=== PATIENT | male | born 1990 | race Hispanic/Latino ===

== ENCOUNTER 2020-06-10 19:44 | Observation (INO) | payer OTHER, SELFPAY ==
--- NOTE | ~2020-06-10 | CT_ITS ---
EXAMINATION: CT abdomen pelvis w con DATE: 06/10/2020 20:57 INDICATION: Right lower quadrant abdominal pain. TECHNIQUE: Computed tomography (CT) of the abdomen and pelvis was performed with 100 mL Omnipaque 350 intravenous contrast. Automated exposure control and iterative reconstruction technique were employe d. The dose-length product was 913.50 mGy-cm. COMPARISON: None. FINDINGS: The visualized portions of the lung bases demonstrate minimal atelectasis. No pleural effus ion. The heart size is normal. No pericardial effusion. The liver, gallbladder, spleen, pancreas, adr enal glands, and kidneys are normal. There are no dilated loops of bowel. The appendix is fluid-fille d with diameter of 8 mm. There are no pathologically enlarged lymph nodes. There is no free intraperi toneal fluid. There is mild lumbar spondylosis. IMPRESSION: 1. Appendiceal diameter of 8 mm, which is indeterminate for appendicitis. Reviewed, dictated and finalized at location A.
[2020-06-10 19:48] VITALS: BP 145/90; PULSE 89; RESP 18; TEMP 36.9; O2SAT 100
[2020-06-10 20:23] LABS: Add Urine Microscopic? NO; Appearance Urine Clear (Clear); Bilirubin Urine Negative (Negative); Blood Urine Negative (Negative); Color Urine Straw (Yellow); Glucose Urine UA Negative (Negative); Ketones Urine Negative (Negative); Leukocyte Esterase Ur Negative LEU/UL (Negative); Nitrate Urine Negative (Negative); Protein Urine Negative (Negative); Specific Grav Ur 1.009 (1.001-1.035); Urobilinogen Urine Negative mg/dL (<2.0)
[2020-06-10 20:31] LABS: Basophils Absolute Auto 0.1 K/mm3 (0.0-0.1); Basophils Percent Auto 0.6 % (0.2-1.2); Eosinophils Absolute Auto 0.4 K/mm3 (0-0.3); Eosinophils Percent Auto 4.2 % (0-4.4); Hematocrit 42.7 % (42.0-52.0); Hemoglobin 14.1 g/dL (14.0-18.0); Immature Granulocyte Absolute 0.04 K/mm3 (0.00-0.031); Immature Granulocyte Percent A 0.5 % (0-0.5); Lymphocytes Absolute Auto 3.69 K/mm3 (0.9-3.2); Lymphocytes Percent Auto 42.1 % (18.3-44.2); Mean Corpuscular Volume 87.9 fl (80-100); Mean Platelet Volume 10.4 fl (7.4-10.4); Monocytes Absolute Auto 0.6 K/mm3 (0.1-0.6); Monocytes Percent Auto 7.1 % (2.6-8.5); Neutrophils Percent Auto 45.5 % (45.5-73.1); Platelet Count Result 313 k/mm3 (150-375); Red Blood Count 4.86 M/mm3 (4.6-6.20); Red Cell Distribution Width 14.9 % (11.5-14.5); White Blood Count 8.8 K/mm3 (4.5-10.0)
[2020-06-10 20:40] LABS: Alanine Aminotransferase 20 U/L (4-50); Albumin Level 4.3 g/dL (3.5-5.1); Alkaline Phosphatase 62 U/L (38-126); Anion Gap 6 mmol/L (8-16); Aspartate Amino Transferase 23 U/L (17-59); Bilirubin,Total 0.9 mg/dL (0.2-1.3); Blood Urea Nitrogen 10 mg/dL (9-20); Calcium 9.3 mg/dL (8.4-10.2); Carbon Dioxide 30 mmol/L (22-30); Chloride 105 mmol/L (98-107); Estimated CRCL calculation 118 ml/min; Estimated Glomerular Filt Rate > 60; Glucose 92 mg/dL (75-110); Lipase 97 U/L (23-300); Sodium 141 mmol/L (137-145)
[2020-06-10 21:35] VITALS: BP 140/98; PULSE 87; RESP 20; O2SAT 100
[2020-06-10] MEDS: SODIUM CHLORIDE 0.9% IV 1,000 ML 150 ML IV CONT (21:49)
--- NOTE | 2020-06-10 23:02 | ED.ABDPAIN ---
HPI - Abdominal Pain General Chief Complaint: Abdominal Pain Stated Complaint: RLQ pain Time Seen by Provider: 06/10/20 19:54 Source: patient Mode of arrival: ambulatory Limitations: no limitations History of Present Illness HPI narrative: 29-year-old with no major medical problems here with a right lower quadrant pain since yesterday. Patient states that pain is still persistent was at work and got worse. He denies any fever or chills no history of blood in the urine or in stool. No other complaints MD elicited complaint: abdominal pain Pertinent past history: none Onset (ago): day(s) (1) Pain Consistency: constant Location: RLQ Severity: moderate Quality: aching Radiation: RLQ Migration to: no migration Exacerbating factors: nothing Relieving factors: nothing Related Data Home Medications Medication Instructions Recorded Confirmed No Home Medications 06/10/20 Allergies Allergy/AdvReac Type Severity Reaction Status Date / Time No Known Allergies Allergy Verified 06/10/20 19:51 Review of Systems Review of Systems: All systems reviewed & are unremarkable except as noted in HPI and below Constitutional: Constitutional: Reports no additional constitutional complaints Eyes: Eyes: Reports no additional eye complaints ENT: Reports system reviewed and no additional complaints, except as documented Cardiovascular: Cardiovascular: Reports no additional cardiovascular complaints Respiratory: Respiratory: Reports no additional respiratory complaints Gastrointestinal: Gastrointestinal: Reports as per HPI Genitourinary: Genitourinary: Reports no additional male genitourinary complaints Musculoskeletal: Musculoskeletal: Reports no additional musculoskeletal complaints Integumentary/Breasts: Skin/Breast: Reports system reviewed and no additional complaints, except as docu Neurologic: Reports system reviewed and no additional complaints, except as documented PMFSH Social History Social History Gender identity (if verbalized by the patient): Male Exam Narrative: Exam Narrative: GENERAL: Well-appearing, well-nourished, and in no acute distress. HEAD: Normocephalic, atraumatic. EYES: PERRLA and EOMI.. NECK: Supple. CHEST: Clear to auscultation. No respiratory distress. HEART: Regular rate and rhythm. No murmur heard. Normal peripheral pulses. ABDOMEN: Soft, mild tenderness in the right lower quadrant area ,, nondistended, normal active bowel sounds. EXTREMITIES: Normal range of motion. No edema. SKIN: Warm, dry, no rash. NEURO: No focal deficits. Alert and oriented x3. PSYCH: Normal mood and affect. Course Course Emergency Course: Patient lying comfortably in no discomfort. I informed him about his lab work, CT findings. He agreed for admission. I discussed with Dr. Mackenzie recommended IV antibiotic and will do surgery in the morning. Vital Signs Vital signs: Vital Signs Temperature 36.9 C 06/10/20 19:48 Pulse Rate 89 06/10/20 19:48 Respiratory Rate 18 06/10/20 19:48 Blood Pressure 145/90 H 06/10/20 19:48 Pulse Oximetry 100 06/10/20 19:48 Temperature 36.9 C 06/10/20 19:48 Pulse Rate 87 06/10/20 21:35 Respiratory Rate 20 06/10/20 21:35 Blood Pressure 140/98 H 06/10/20 21:35 Pulse Oximetry 100 06/10/20 21:35 MDM - Abdominal Pain Differential Diagnosis Differential diagnosis: Likely abdominal pain, acute appendicitis, diverticulitis and gastroenteritis Lab Data Result diagrams: 06/10/20 20:02 06/10/20 20:02 Labs: Lab Results 06/10/20 06/10/20 06/10/20 Range/Units 20:02 20:02 20:15 WBC 8.8 (4.5-10.0) K/mm3 RBC 4.86 (4.6-6.20) M/mm3 Hgb 14.1 (14.0-18.0) g/dL Hct 42.7 (42.0-52.0) % MCV 87.9 (80-100) fl MCH 29.0 (26-34) pg MCHC 33.0 (32-36) g/dl RDW 14.9 H (11.5-14.5) % Plt Count 313 (150-375) k/mm3 MPV 10.4 (7.4-10.4) f
[2020-06-10 23:18] VITALS: BP 137/68; PULSE 78; RESP 18; TEMP 36.4; O2SAT 99
[2020-06-10 23:20] VITALS: BMI 33.6
[2020-06-10 23:33] VITALS: O2SAT 97
[2020-06-11] VITALS (10 sets, daily range): BP systolic 96–133; BP diastolic 68–87; PULSE 56–93; RESP 15–20; TEMP 35.9–36.8; O2SAT 95–100
--- NOTE | 2020-06-11 09:39 | PM.IMHP ---
H&P: HPI History of Present Illness Date/Time: 06/11/20 09:39 Pt is a 29 y/o M presenting to ED c/o persistent, worsening RLQ abd pain over last 2 days. Pt reports pain was acute in nature and has always been localized to RLQ. Pt denies any other assoc sx and has been able to kristina diet. Pt also reports normal bowel fxn. Pt denies f/c, previous episodes. Chief Complaint: acute appendicitis Review of Systems Constitutional: Constitutional: Denies anorexia, Denies chills, Denies fatigue, Denies lethargy, Denies poor appetite, Denies weakness, Denies weight gain and Denies weight loss Eyes: Eyes: Reports no additional eye complaints ENT: Reports system reviewed and no additional complaints, except as documented Cardiovascular: Cardiovascular: Reports no additional cardiovascular complaints Respiratory: Respiratory: Reports no additional respiratory complaints Gastrointestinal: Gastrointestinal: Reports as per HPI Genitourinary: Genitourinary: Reports no additional male genitourinary complaints Musculoskeletal: Musculoskeletal: Reports no additional musculoskeletal complaints Integumentary/Breasts: Skin/Breast: Reports system reviewed and no additional complaints, except as docu Neurologic: Reports system reviewed and no additional complaints, except as documented Psychiatric: Psychiatric: Reports no additional psychiatric complaints Endocrine: Endocrine: Reports no additional endocrine complaints Hematologic/Lymphatic: Hematologic/Lymphatic: Reports no additional hematologic/lymphatic complaints Allergic/Immunologic: Allergic/Immunologic: Reports no additional allergic/immunologic complaints [facility] Family History Family History Grandparent Cerebrovascular accident Diabetes mellitus Social History Social History Smoking status: Current every day smoker Tobacco type: e-cigarettes/vaping Alcohol intake: current Drinks per week: 1 Substance use: never Gender identity (if verbalized by the patient): Male Spiritual care concerns: No Comments pt denies any past medical or surgical history Meds Home Medications and Allergies Home Medications Medication Instructions Recorded Confirmed Type No Home Medications 06/10/20 06/10/20 History Allergies Allergy/AdvReac Type Severity Reaction Status Date / Time No Known Allergies Allergy Verified 06/10/20 23:21 Vital Signs Vital Signs - 24 hr 06/10/20 19:48 06/10/20 21:35 05/06/21 23:18 Temperature 36.9 C 36.4 C Pulse Rate 89 87 78 Respiratory Rate 18 20 18 Blood Pressure 145/90 H 140/98 H 137/68 Pulse Oximetry 100 100 99 06/10/20 23:33 06/11/20 08:51 Temperature 36.2 C L Pulse Rate 56 L Respiratory Rate 18 Blood Pressure 118/68 Pulse Oximetry 97 99 Exam Const: General: cooperative, healthy appearing, comfortable, no acute distress, well developed, alert, awake and Physically active Nutritional Appearance: obese Orientation/consciousness: patient oriented x3 Limitations: no limitations HENMT: Head: normal to inspection, normocephalic and atraumatic Ears: hearing grossly normal bilaterally General nose exam: Normal external nose present Face and sinus: normal facial exam Mouth: Yes Normal oral and palatal mucosa present and Yes moist mucous membranes Eyes: General: appearance normal, both eyes and all related structures Pupils: Equal, round and reactive pupils present EOM: EOMs intact bilaterally Neck: Neck: normal visual inspection, full ROM and no lymphadenopathy Chest: Chest palpation & inspection: normal inspection of the chest Resp: Effort & Inspection: normal respiratory effort Auscultation: clear to auscultation bilaterally Cardio: Jugular venous distension: no JVD Rate: regular rate Rhythm: regular rhythm GI: Inspection: normal to inspection GI Palp: Yes Soft to palpation, Yes Tenderness to p
--- NOTE | 2020-06-11 09:43 | WPDHPUPDATE1 ---
History and Physical Update Update Date/Time: 06/11/20 09:43 History and Physical has been reviewed, including an updated exam of the patient. There are NO changes in the patient's condition. Risks, benefits, and alternatives have been discussed and questions answered. Patient agrees to proceed with procedure.
--- NOTE | 2020-06-11 13:39 | WPDANESEPPF ---
Anes - Initial Pre Proc Eval Procedure: Operation Date: 06/11/20 14:30 Proposed Procedures p Laparoscopic Appendectomy - Janice Mackenzie MD Date/Time: 06/11/20 13:39 Surgeon: Janice Mackenzie MD Pre Op Diagnosis: appendicitis Patient Data Age: 29 Gender: M Height: 1.7 m Weight: 97.5 kg Last Vital Signs Temp 36.2 C L 06/11/20 08:51 Pulse 56 L 06/11/20 08:51 Resp 18 06/11/20 08:51 BP 118/68 06/11/20 08:51 Pulse Ox 99 06/11/20 08:51 Allergies Allergy/AdvReac Type Severity Reaction Status Date / Time No Known Allergies Allergy Verified 06/10/20 23:21 Home Medications Medication Instructions Recorded Confirmed Type No Home Medications 06/10/20 06/10/20 History Laboratory Tests 06/10/20 06/10/20 06/10/20 20:02 20:02 20:15 WBC 8.8 K/mm3 K/mm3 (4.5-10.0) RBC 4.86 M/mm3 M/mm3 (4.6-6.20) Hgb 14.1 g/dL g/dL (14.0-18.0) Hct 42.7 % % (42.0-52.0) MCV 87.9 fl fl (80-100) MCH 29.0 pg pg (26-34) MCHC 33.0 g/dl g/dl (32-36) RDW 14.9 % H % (11.5-14.5) Plt Count 313 k/mm3 k/mm3 (150-375) MPV 10.4 fl fl (7.4-10.4) Immature Gran % (Auto) 0.5 % % (0-0.5) Neut % (Auto) 45.5 % % (45.5-73.1) Lymph % (Auto) 42.1 % % (18.3-44.2) [place] % (Auto) 7.1 % % (2.6-8.5) Eos % (Auto) 4.2 % % (0-4.4) Baso % (Auto) 0.6 % % (0.2-1.2) Lymph # (Auto) 3.69 K/mm3 H K/mm3 (0.9-3.2) [place] # (Auto) 0.6 K/mm3 K/mm3 (0.1-0.6) Eos # (Auto) 0.4 K/mm3 H K/mm3 (0-0.3) Baso # (Auto) 0.1 K/mm3 K/mm3 (0.0-0.1) Abs Immat Gran (auto) 0.04 K/mm3 H K/mm3 (0.00-0.031) Absolute Neuts (auto) 4.0 K/mm3 K/mm3 (1.3-6.7) Absolute Nucleated RBC 0.0 K/mm3 K/mm3 (0.0-0.012) Nucleated RBC % 0.0 % % (0.0-0.2) Sodium 141 mmol/L mmol/L (137-145) Potassium 4.0 mmol/L mmol/L (3.4-5.0) Chloride 105 mmol/L mmol/L (98-107) Carbon Dioxide 30 mmol/L mmol/L (22-30) Anion Gap 6 mmol/L L mmol/L (8-16) BUN 10 mg/dL mg/dL (9-20) Creatinine 0.90 mg/dL mg/dL (0.7-1.3) Estim Creat Clear Calc 118 ml/min ml/min Estimated GFR > 60 (59 - ) Glucose 92 mg/dL mg/dL (75-110) Calcium 9.3 mg/dL mg/dL (8.4-10.2) Total Bilirubin 0.9 mg/dL mg/dL (0.2-1.3) AST 23 U/L U/L (17-59) ALT 20 U/L U/L (4-50) Alkaline Phosphatase 62 U/L U/L (38-126) Total Protein 8.0 g/dL g/dL (6.3-8.2) Albumin 4.3 g/dL g/dL (3.5-5.1) Lipase 97 U/L U/L (23-300) Urine Color Straw (Yellow) Urine Appearance Clear (Clear) Urine pH 7.0 (5.0-9.0) Ur Specific [place] 1.009 (1.001-1.035) Urine Protein Negative mg/dL mg/dL (Negative) Urine Glucose (UA) Negative mg/dL mg/dL (Negative) Urine Ketones Negative mg/dL mg/dL (Negative) Ur Blood (Man) Negative (Negative) Urine Nitrate Negative (Negative) Urine Bilirubin Negative (Negative) Urine Urobilinogen Negative mg/dL mg/dL (<2.0) Leukocyte Esterase Rfl Negative VAN/UL VAN/UL (Negative) Patient hx anesthesia problems: none Family hx anesthesia problems: none PMFSH Family History Family History Grandparent Cerebrovascular accident Diabetes mellitus Social History Social History Smoking status: Current every day smoker Tobacco type: e-cigarettes/vaping Alcohol intake: current Drinks per week: 1 Substance use: never Gender identity (if verbalized by the patient): Male Spiritual care concerns: No
[2020-06-11] MEDS: LACTATED RINGERS 1,000 ML 30 ML IV CONT ×2 (13:40→15:34)
[2020-06-11] MEDS: BUPIVACAINE/EPINEPHRINE 0.5% 30 ML VIAL INFILTRATE (15:04)
--- NOTE | 2020-06-11 15:27 | PM.PROC ---
Procedure Note - Detailed Date of procedure: 06/11/20 Pre-op diagnosis: appendicitis Post-op diagnosis: same Procedure performed: Laparoscopic appendectomy Description of procedure: The patient was brought into the operating room placed in the supine position. After adequate induction of general anesthesia, the patient was prepped and draped in normal sterile fashion. A time-out was then done to verify the patient's identity as well as the procedure being performed. I began by making a 5 mm incision in the infraumbilical region. A 5 mm Optiview trocar within used to gain access into the peritoneal cavity. Once into the peritoneal cavity, CO2 gas was insufflated. After adequate pneumoperitoneum was achieved, the laparoscope was placed into the 5 mm trocar. Under direct visualization, I went ahead and placed a further 5 mm suprapubic port as well as a 12 mm port in the left lower abdomen. At this point, I was able to visualize cecum. The cecum was retracted both cephalad and medial, and this allowed us to expose the appendix. The appendix was noted to be dilated, injected, and inflamed. There was no obvious perforation of the appendix. I then grasped the appendix near the tip of the appendix and retracted both anterior and lateral. This allowed exposure of the base of the appendix with the cecum. I then created a window with the [place] dissector between the appendix and the mesoappendix at the base of the appendix. Once this was achieved, a vascular staple load on the Endo-LUZ ELENA was placed through the 12 mm port site and subsequently transected the mesoappendix. I then reloaded the Endo-LUZ ELENA with a blue staple load and transected the base of the appendix with the cecum. Once the appendiceal specimen was completely detached, a Endo pouch was placed through the 12 mm port site. The appendix was placed into the Endo pouch and removed through the 12 mm port site. The appendix will now be sent to pathology for further review. I then visualized the right lower quadrant, both staple lines were noted to be intact and hemostatic. No other pathology was noted in the right lower quadrant or pelvis. I then moved the laparoscope to the 5 mm suprapubic port. I then visualized our port of entry at the 5 mm infraumbilical site. No iatrogenic injury or other pathology was seen in the upper abdomen. I then desufflated the abdomen and all ports were removed. The fascia of the 12 mm port site was closed with an 0 Vicryl figure of 8 suture. All port sites were then closed with 4 O Monocryl subcuticular suture. The patient tolerated the procedure well and was extubated in the operating room postoperatively. The patient will be transferred to the recovery room in stable condition. Anesthesia: GETA Surgeon: Janice Mackenzie MD Estimated blood loss (mL): 5 Drains: No Packing: No Pathology: yes Complications: No immediate complications Condition: stable Disposition: PACU Findings: Acute uncomplicated appendicitis
--- NOTE | 2020-06-11 15:28 | PM.DS ---
DS: Admitting Diagnosis Admitting Diagnosis Admitting Diagnosis: acute appendicitis DS: Discharge Diagnosis Discharge Diagnosis (1) Acute appendicitis: Qualifiers: Acute appendicitis type: with localized peritonitis Appendicitis abscess presence: without abscess Appendicitis gangrene presence: without gangrene Appendicitis perforation presence: without perforation Qualified Code(s): K35.30 - Acute appendicitis with localized peritonitis, without perforation or gangrene Code(s): K35.80 - Unspecified acute appendicitis Status: Acute Assessment and Plan: s/p lap appy, routine postop care, home c po analgesia and stool softeners, f/u 2 wks DS: Summary Hospital Course Reason for hospitalization: acute appendicitis Hospital Course: Pt is a 29 y/o M presenting to ED c/o RLQ abd pain. Workup in ED, including CT, significant for acute appendicitis. Pt admitted to surgical team, made NPO, and started on IV abx. Upon evaluation, it was decided pt would need urgent appendectomy. Pt taken to OR on 06/11 and lap appy done, please see op report for full details. Postop, pt did well and was transferred back to floor. Pt was observed for a few hours postop and was doing well. He will be dc'd home c routine postop instructions, po analgesia. Pt to f/u 2 wks. Status at Discharge Functional status at discharge: independent ambulation Overall status at discharge: patient is progressing back to baseline Time Spent with Patient Time attestation: Total time spent providing and/or coordinating discharge services: Time spent: Less than 30 minutes Exam Const: General: cooperative, comfortable and no acute distress Nutritional Appearance: obese Orientation/consciousness: patient oriented x3 Resp: Effort & Inspection: normal respiratory effort Auscultation: clear to auscultation bilaterally Cardio: Rate: regular rate Rhythm: regular rhythm GI: Inspection: normal to inspection, distended and incision GI Palp: Yes Soft to palpation and Yes Tenderness to palpation present (GI) Other: soft, sl dist, silvia TTP, incisions C/D/I DS: Data Data Completed and Pending Pending studies at discharge: Pending at discharge 06/11/20 15:00 Surgical [PTH] Routine Labs on day of discharge: Labs from last 24 hours 06/10/20 06/10/20 06/10/20 20:15 20:02 20:02 WBC 8.8 RBC 4.86 Hgb 14.1 Hct 42.7 MCV 87.9 MCH 29.0 MCHC 33.0 RDW 14.9 H Plt Count 313 MPV 10.4 Immature Gran % (Auto) 0.5 Neut % (Auto) 45.5 Lymph % (Auto) 42.1 [place] % (Auto) 7.1 Eos % (Auto) 4.2 Baso % (Auto) 0.6 Lymph # (Auto) 3.69 H [place] # (Auto) 0.6 Eos # (Auto) 0.4 H Baso # (Auto) 0.1 Abs Immat Gran (auto) 0.04 H Absolute Neuts (auto) 4.0 Absolute Nucleated RBC 0.0 Nucleated RBC % 0.0 Sodium 141 Potassium 4.0 Chloride 105 Carbon Dioxide 30 Anion Gap 6 L BUN 10 Creatinine 0.90 Estim Creat Clear Calc 118 Estimated GFR > 60 Glucose 92 Calcium 9.3 Total Bilirubin 0.9 AST 23 ALT 20 Alkaline Phosphatase 62 Total Protein 8.0 Albumin 4.3 Lipase 97 Urine Color Straw Urine Appearance Clear Urine pH 7.0 Ur Specific [place] 1.009 Urine Protein Negative Urine Glucose (UA) Negative Urine Ketones Negative Ur Blood (Man) Negative Urine Nitrate Negative Urine Bilirubin Negative Urine Urobilinogen Negative Leukocyte Esterase Rfl Negative Discharge Plan Discharge Attending physician on discharge: Janice Mackenzie Discharging Clinician: Janice Mackenzie Anticipated Discharge Date/Time: 06/11/20 19:00 Patient Disposition: Home, Self-Care Activity: other - see discharge instructions Diet: other - see discharge instructions Wound Care Instructions: follow printed instructions Discharge Instructions: DISCHARGE INSTRUCTION SHEET FOR HERNIA, GALLBLADDER AND APPEND
[2020-06-11] MEDS: fentaNYL CITRATE INJ (*CRX) 100 MCG/2 ML VIAL 25 MCG IV PUSH ×2 (16:00→16:12)
== END 2020-06-11 19:00 | disposition home or self-care (01) ==
LOC: ANHED 20:09 → ANH3MED 22:34
PROVIDERS: Admitting Provider Surgery; Emergency Provider Family Medicine; Visit Provider Surgery
PROC: 0DTJ4ZZ Resection of Appendix, Percutaneous Endoscopic Approach (ICD-10-PCS; CPT 44970; principal; 2020-06-11 14:30)
DX: K35.30 Acute appendicitis with localized peritonitis, without perforation or gangrene (principal); F17.290 Nicotine dependence, other tobacco product, uncomplicated
CPT/HCPCS: 44970; 36415; 74177; 80053; 81003; 83690; 85025; 88304; 96361; 96365; 96375; 99285; G0378; J0330; J1100; J2250; J2405; J2543; J2704; J2710; J3010; J7030; J7120; Q9967